=== PATIENT | male | born 1980 | race American Indian/Alaskan Native ===

== ENCOUNTER 2016-11-23 23:13 | Emergency (ER) | payer MEDICAID ==
[2016-11-24 00:33] LABS: Basophils % (Auto) 0.9 % (0.0-1.8); Eosinophils % (Auto) 1.2 % (0.0-4.3); Hematocrit 41.2 % (35.5-45.6); Hemoglobin 13.9 gm/dl (11.8-15.2); Mean Corpuscular HGB Conc 34 % (32-34); Mean Corpuscular Hemoglobin 35 pg (28-32); Mean Corpuscular Volume 104 fl (84-94); Platelet Count 303 K/mm3 (140-440); Red Blood Count 3.98 M/mm3 (3.65-5.03); Red Cell Distribution Width 12.7 % (13.2-15.2); White Blood Count 11.3 K/mm3 (4.5-11.0)
[2016-11-24] MEDS ORDERED: ZOFRAN IV ONE (00:45)
[2016-11-24] MEDS ORDERED: MORPHINE IV ONE (00:45)
[2016-11-24] MEDS ORDERED: TORADOL IV ONE (00:45)
[2016-11-24] MEDS ORDERED: NACL 0.9% 1000 ML 1,000 ML IV ONE (00:46)
[2016-11-24 00:50] LABS: Anion Gap 22 mmol/L; BUN/Creatinine Ratio 14; Blood Urea Nitrogen 17 mg/dL (9-20); Calcium 9.2 mg/dL (8.4-10.2); Carbon Dioxide 22 mmol/L (22-30); Chloride 99.4 mmol/L (98-107); Glucose 113 mg/dL (75-100); Potassium 3.5 mmol/L (3.6-5.0); Sodium 140 mmol/L (137-145)
--- NOTE | 2016-11-24 01:07 | Ultrasound Report ---
FINAL REPORT EXAM: US TESTICULAR DOPPLER COMP HISTORY: testicular pain sudden onset TECHNIQUE: Real-time sonography was performed of the scrotum and images are submitted for interpretation. PRIORS: None. FINDINGS: Both testes appear normal in size, shape and echogenicity with the right measuring 3.9 x 2.0 x 3.1 cm and the left measuring 3.9 x 2.5 x 3.0 cm. There is a calcification in the right mid testis measuring 3 x 1 x 2 mm. There is a 5 x 6 x 4 mm right epididymal head cyst and a 6 x 2 x 4 mm left epididymal head cyst. There is are small bilateral hydroceles. Color duplex evaluation shows normal waveforms without evidence of torsion. IMPRESSION: 1. Small calcification in the right mid testis unlikely to be clinically significant 2. Very small bilateral epididymal head cysts 3. Small bilateral hydroceles
[2016-11-24 01:15] LABS: Bilirubin,Urine NEG (Negative); Blood,Urine SM (Negative); Ketones,Urine NEG (Negative); Leukocyte Esterase,Urine TR (Negative); Mucus,Urine FEW /HPF; Nitrite,Urine NEG (Negative); Protein,Urine <15 mg/dL mg/dL (Negative)
[2016-11-24] MEDS ORDERED: DILAUDID IV ONE ×2 (01:31→03:08)
--- NOTE | 2016-11-24 02:48 | Cat Scan Report ---
FINAL REPORT EXAM: CT ABDOMEN PELVIS WO CON HISTORY: groin pain and vomiting left side pain TECHNIQUE: Routine axial imaging was obtained of the abdomen pelvis without IV contrast. FINDINGS: There is mild left-sided hydronephrosis with perinephric stranding. This is secondary to a 2 millimeter stone in the left UVJ. There are no additional renal stones. The lung bases are clear. Pleural fluid is not seen. The liver, gallbladder, pancreas, spleen, and adrenal glands appear normal. The bowel loops are normal in caliber and course. The appendix appears normal. Free fluid is not seen. In the pelvis the bladder otherwise is normal in configuration. Bones and soft tissues are well maintained. IMPRESSION: Mild left-sided hydronephrosis secondary to 2 millimeter stone in the left UVJ.
[2016-11-24] MEDS ORDERED: K-DUR PO ONE (03:40)
--- NOTE | 2016-11-24 03:42 | Emergency Department Report ---
ED Male HPI - General Chief complaint: Urogenital-Male Stated complaint: VOMITING Time Seen by Provider: 11/24/16 01:40 Source: patient Mode of arrival: Wheelchair Limitations: No Limitations - History of Present Illness Initial comments: 36-year-old male with a past medical history of GERD presents to the hospital complaining of sudden onset of testicular left lower quadrant pain 1 hour prior to arrival. Positive nausea vomiting around to the hospital. Pain is 10/ 10 intensity, constant, worse with palpation and movement, no alleviating symptoms. Patient denies dysuria, hematuria, trauma, fever, or history of kidney stones. - Related Data Home Medications Medication Instructions Recorded Confirmed Last Taken AtorvaSTATin [Lipitor] 40 mg PO QDAY 09/21/14 10/03/14 10/02/14 Omeprazole [PriLOSEC] 20 mg PO QDAY 09/21/14 10/03/14 2 Months Ago Vardenafil HCl [Levitra] 20 mg PO QDAY PRN 09/21/14 10/03/14 4 Months Ago Previous Rx's Medication Instructions Recorded Last Taken Type Acetaminophen/Codeine [Tylenol #3] 1 - 2 tab PO Q6H PRN #30 tab 10/03/14 Unknown Rx Docusate Sodium [Colace CAP] 100 mg PO BID PRN #30 capsule 10/03/14 Unknown Rx Cephalexin [Keflex] 500 mg PO Q12HR #14 cap 11/24/16 Unknown Rx Ibuprofen [Motrin] 600 mg PO Q8H PRN #30 tablet 11/24/16 Unknown Rx Omeprazole 20 mg PO DAILY #30 tablet. 11/24/16 Unknown Rx Tamsulosin [Flomax] 0.4 mg PO QDAY #7 cap 11/24/16 Unknown Rx oxyCODONE /ACETAMINOPHEN [Percocet 1 tab PO Q4HR PRN #20 tab 11/24/16 Unknown Rx 5/325] Allergies Allergy/AdvReac Type Severity Reaction Status Date / Time No Known Allergies Allergy Verified 10/03/14 10:00 ED Review of Systems ROS: Stated complaint: VOMITING Other details as noted in HPI Comment: All other systems reviewed and negative Other: Constitutional: No fevers chills Eyes: No eye pain visual changes ENT: No ear pain or throat pain Neck: Denies pain Respiratory: Denies cough wheezing shortness of breath Cardiovascular: Denies chest pain, palpitations, syncope GI: As per HPI : Denies dysuria Musculoskeletal: Denies back pain Skin: Denies rash, lesions, erythema Neurologic: Denies headache, numbness, weakness Psychiatric: Denies suicidal ideation, hallucinations ED Past Medical Hx - Past Medical History Previous Medical History?: Yes Hx Hypertension: No Hx GERD: Yes Hx Renal Disease: No Hx Asthma: No - Surgical History Past Surgical History?: No - Social History Smoking Status: Current Every Day Smoker Substance Use Type: Alcohol, Marijuana - Medications Home Medications: Home Medications Medication Instructions Recorded Confirmed Last Taken Type AtorvaSTATin [Lipitor] 40 mg PO QDAY 09/21/14 10/03/14 10/02/14 History Omeprazole [PriLOSEC] 20 mg PO QDAY 09/21/14 10/03/14 2 Months Ago History Vardenafil HCl [Levitra] 20 mg PO QDAY PRN 09/21/14 10/03/14 4 Months Ago History Acetaminophen/Codeine [Tylenol #3] 1 - 2 tab PO Q6H PRN #30 tab 10/03/14 Unknown Rx Docusate Sodium [Colace CAP] 100 mg PO BID PRN #30 capsule 10/03/14 Unknown Rx Cephalexin [Keflex] 500 mg PO Q12HR #14 cap 11/24/16 Unknown Rx Ibuprofen [Motrin] 600 mg PO Q8H PRN #30 tablet 11/24/16 Unknown Rx Omeprazole 20 mg PO DAILY #30 tablet.dr 11/24/16 Unknown Rx Tamsulosin [Flomax] 0.4 mg PO QDAY #7 cap 11/24/16 Unknown Rx oxyCODONE /ACETAMINOPHEN [Percocet 1 tab PO Q4HR PRN #20 tab 11/24/16 Unknown Rx 5/325] ED Physical Exam - General Limitations: No Limitations - Other Other exam information: General: No limitations, patient is alert in no acute distress Head exam: Atraumatic, normocephalic Eyes exam: Normal appearance ENT: Moist mucous membrane, normal oropharynx Neck exam: Normal inspection, full range of motion, no meningismus nontender Respiratory exam: Clear to auscultation bilateral, no wheezes, rales, crackles Cardiovascular: Normal rate and rhythm, normal heart sounds Abdomen: Soft, nondistended, and nontender, with normal bowel sounds, no rebound, or guarding. Palpated after patient received IV medication but apparently left lower quadrant was tender prior evening meds. : Circumcised, no penile lesions or discharge, vertical testicular lie without epididymal tenderness or scrotal swelling Extremity: Full range of motion normal inspection no deformity Back: Normal Inspection, full range of motion, no tenderness Neurologic: Alert, oriented x3, cranial nerves intact, no motor or sensory deficit Psychiatric: normal affect, normal mood Skin: Warm, dry, intact ED Course Vital Signs 11/23/16 11/23/16 11/24/16 23:18 23:35 01:37 Temperature 98.4 F 98.4 F 97.9 F Pulse Rate 60 60 73 Respiratory 18 18 Rate Blood Pressure 181/105 Blood Pressure 181/105 143/78 [Right] O2 Sat by Pulse 99 99 98 Oximetry - Reevaluation(s) Reevaluation #1: 11/24/16 03:40 Pt received morphine, Toradol, Zofran patient continued to have pain. At 0.5 mg given with some additional improvement have a car patient requires subsequent Dilaudid dosing 1 mg for pain relief. ED Medical Decision Making - Lab Data Result diagrams: 11/23/16 23:53 11/23/16 23:53 Lab Results 11/23/16 11/23/16 11/23/16 Range/Units 23:53 23:53 23:53 WBC 11.3 H (4.5-11.0) K/mm3 RBC 3.98 (3.65-5.03) M/mm3 Hgb 13.9 (11.8-15.2) gm/dl Hct 41.2 (35.5-45.6) % MCV 104 H (84-94) fl MCH 35 H (28-32) pg MCHC 34 (32-34) % RDW 12.7 L (13.2-15.2) % Plt Count 303 (140-440) K/mm3 Lymph % (Auto) 24.1 (13.4-35.0) % [place] % (Auto) 10.0 H (0.0-7.3) % Eos % (Auto) 1.2 (0.0-4.3) % Baso % (Auto) 0.9 (0.0-1.8) % Lymph # 2.7 (1.2-5.4) K/mm3 [place] # 1.1 H (0.0-0.8) K/mm3 Eos # 0.1 (0.0-0.4) K/mm3 Baso # 0.1 (0.0-0.1) K/mm3 Seg Neutrophils % 63.8 (40.0-70.0) % Seg Neutrophils # 7.2 (1.8-7.7) K/mm3 Sodium 140 (137-145) mmol/L Potassium 3.5 L (3.6-5.0) mmol/L Chloride 99.4 (98-107) mmol/L Carbon Dioxide 22 (22-30) mmol/L Anion Gap 22 mmol/L BUN 17 (9-20) mg/dL Creatinine 1.2 (0.8-1.5) mg/dL Estimated GFR > 60 ml/min BUN/Creatinine Ratio 14 % Glucose 113 H (75-100) mg/dL Lactic Acid 1.30 (0.7-2.0) mmol/L Calcium 9.2 (8.4-10.2) mg/dL Urine Color (Yellow) Urine Turbidity (Clear) Urine pH (5.0-7.0) Ur Specific [place] (1.003-1.030) Urine Protein (Negative) mg/dL Urine Glucose (UA) (Negative) mg/dL Urine Ketones (Negative) mg/dL Urine Blood (Negative) Urine Nitrite (Negative) Urine Bilirubin (Negative) Urine Urobilinogen (<2.0) mg/dL Ur Leukocyte Esterase (Negative) Urine WBC (Auto) (0.0-6.0) /HPF Urine RBC (Auto) (0.0-6.0) /HPF Urine Mucus /HPF 11/23/16 Range/Units Unknown WBC (4.5-11.0) K/mm3 RBC (3.65-5.03) M/mm3 Hgb (11.8-15.2) gm/dl Hct (35.5-45.6) % MCV (84-94) fl MCH (28-32) pg MCHC (32-34) % RDW (13.2-15.2) % Plt Count (140-440) K/mm3 Lymph % (Auto) (13.4-35.0) % [place] % (Auto) (0.0-7.3) % Eos % (Auto) (0.0-4.3) % Baso % (Auto) (0.0-1.8) % Lymph # (1.2-5.4) K/mm3 [place] # (0.0-0.8) K/mm3 Eos # (0.0-0.4) K/mm3 Baso # (0.0-0.1) K/mm3 Seg Neutrophils % (40.0-70.0) % Seg Neutrophils # (1.8-7.7) K/mm3 Sodium (137-145) mmol/L Potassium (3.6-5.0) mmol/L Chloride (98-107) mmol/L Carbon Dioxide (22-30) mmol/L Anion Gap mmol/L BUN (9-20) mg/dL Creatinine (0.8-1.5) mg/dL Estimated GFR ml/min BUN/Creatinine Ratio % Glucose (75-100) mg/dL Lactic Acid (0.7-2.0) mmol/L Calcium (8.4-10.2) mg/dL Urine Color Yellow (Yellow) Urine Turbidity Clear (Clear) Urine pH 6.0 (5.0-7.0) Ur Specific [place] 1.021 (1.003-1.030) Urine Protein <15 mg/dl (Negative) mg/dL Urine Glucose (UA) Neg (Negative) mg/dL Urine Ketones Neg (Negative) mg/dL Urine Blood Sm (Negative) Urine Nitrite Neg (Negative) Urine Bilirubin Neg (Negative) Urine Urobilinogen 4.0 (<2.0) mg/dL Ur Leukocyte Esterase Tr (Negative) Urine WBC (Auto) 8.0 H (0.0-6.0) /HPF Urine RBC (Auto) 3.0 (0.0-6.0) /HPF Urine Mucus Few /HPF - EKG Data -: EKG Interpreted by [facility] - Radiology Data Radiology results: report reviewed Testicular ultrasound with Doppler: Small calcification in the right mid testes unlikely to be clinically significant. Small bilateral hydroceles. Very small bilateral epididymal head cysts. CT abdomen and pelvis without contrast: Mild left-sided nephrosis secondary to 2 mm stone in the left UVJ - Medical Decision Making Patient's symptoms secondary to renal colic. Sinus 2 mm and likely to pass spontaneously. We'll prescribe medications for symptomatic treatment. BP improved with pain control. Patient also be covered with Keflex due to mild increase in WBC count and perinephric stranding although this is likely related to the obstructive stone - Differential Diagnosis renal colic, UTI, diverticulitis, testicular torsion Critical Care Time: No Critical care attestation.: If time is entered above; I have spent that time in minutes in the direct care of this critically ill patient, excluding procedure time. ED Disposition Clinical Impression: Obstructive uropathy, Renal colic on left side, Urine WBC increased, Hypokalemia Disposition: TO HOME OR SELFCARE Is pt being admited?: Yes Condition: Stable Instructions: Renal Colic (ED), Urinary Tract Infection in Men (ED), Hypokalemia (ED) Additional Instructions: Take the medication as prescribed. I have also refilled your Protonix since I have started Motrin which can aggravate your reflux. Follow up with the urologist provided. Return if symptoms worsen as indicated by your discharge instructions. Prescriptions: Cephalexin [Keflex] 500 mg PO Q12HR #14 cap Ibuprofen [Motrin] 600 mg PO Q8H PRN #30 tablet PRN Reason: Pain Omeprazole 20 mg PO DAILY #30 tablet. oxyCODONE /ACETAMINOPHEN [Percocet 5/325] 1 tab PO Q4HR PRN #20 tab PRN Reason: Pain Tamsulosin [Flomax] 0.4 mg PO QDAY #7 cap Referrals: ELLEN REDMOND MD [Staff Physician] - 3-5 Days (urology ) Time of Disposition: 03:48
[2016-11-24] MEDS ORDERED: KEFLEX PO ONE (03:47)
[2016-11-24 11:43] VITALS: BP 137/95
== END 2016-11-24 04:40 | disposition home or self-care (01) ==
LOC: ED 23:13
DX: N13.9 Obstructive and reflux uropathy, unspecified (principal); N23 Unspecified renal colic; E87.6 Hypokalemia; K21.9 Gastro-esophageal reflux disease without esophagitis; R82.90 Unspecified abnormal findings in urine; F12.10 Cannabis abuse, uncomplicated; F17.200 Nicotine dependence, unspecified, uncomplicated
CPT/HCPCS: 36415; 74176; 80048; 81001; 82140; 85025; 93975; 96361; 96374; 96375; 96376; 99284; J1170; J1885; J2270; J2405; J7030